=== PATIENT | male | born 2005 | race Hispanic/Latino ===

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

== ENCOUNTER 2023-05-30 09:38 | Emergency (ER) | payer OTHER ==
[~2023-05-30] VITALS: Ht 182.9 cm; Wt 65.5 kg
[2023-05-30 09:43] VITALS: BP 130/83; PULSE 75; RESP 18
[2023-05-30] MEDS ORDERED: LACTATED RINGERS 1000ML IV STA (10:41)
[2023-05-30] MEDS ORDERED: KETOROLAC 30MG VIAL (30MG/ML) IVP ONE (11:00)
[2023-05-30] MEDS ORDERED: ONDANSETRON 4MG INJ IVP ONE (11:00)
[2023-05-30 11:18] LABS: CREATININE 0.8 mg/dL (0.5-1.5); POTASSIUM 3.6 mmol/L (3.5-5.1)
[2023-05-30 11:23] LABS: ALBUMIN 4.4 g/dL (3.5-5.0); BILIRUBIN,TOTAL 1.2 mg/dL (0.2-1.0); TOTAL PROTEIN, SERUM 7.7 g/dL (6.0-8.3)
[2023-05-30 11:24] LABS: BASOPHILS # (AUTO) 0.08 K/uL (0.00-0.20); BASOPHILS % (AUTO) 0.6 % (0.0-5.0); EOSINOPHILS # (AUTO) 0.01 K/uL (0.00-0.70); EOSINOPHILS % (AUTO) 0.1 % (0.0-8.0); IMMATURE GRANULOCYTE ABSOLUTE 0.06 K/uL (0-1); LYMPHOCYTES % (AUTO) 7.7 % (21.0-51.0); MEAN CORPUSCULAR HEMOGLOBIN 31.4 pg (27.0-33.0); MEAN CORPUSCULAR HGB CONC 34.2 g/dL (32.0-36.0); MEAN CORPUSCULAR VOLUME 91.8 fL (80-100); MONOCYTES # (AUTO) 0.6 K/uL (0.1-1.0); MONOCYTES % (AUTO) 4.5 % (3.0-13.0); NEUTROPHILS # (AUTO) 11.6 K/uL (1.8-7.7); NEUTROPHILS % (AUTO) 86.7 % (40.0-77.0); PLATELET COUNT (AUTO) 280 K/uL (130-400); RED CELL DISTRIBUTION WIDTH 12.1 % (11.0-15.5); WHITE BLOOD COUNT (AUTO) 13.4 K/uL (4.8-10.8)
[2023-05-30 12:34] LABS: SARS-CoV-2, RNA, NAAT NEGATIVE SARS CoV-2 (NEGATIVE)
[2023-05-30 12:37] LABS: RAPID GROUP A STREP negative (NEGATIVE)
[2023-05-30 12:44] LABS: INFLUENZA TYPE A Negative For Type A (NEGATIVE); INFLUENZA TYPE B Negative For Type B (NEGATIVE)
[2023-05-30] MEDS ORDERED: IOHEXOL-350 75 ML VIAL IV ONE (13:23)
[2023-05-30] MEDS ORDERED: MORPHINE 2 MG SYG IVP STA (15:08)
[2023-05-30] MEDS ORDERED: LIDOCAINE HCL 2% VISCOUS 15 ML UDCUP PO STA (15:31)
[2023-05-30] MEDS ORDERED: MAG/ALUM/SIMETH 30 ML UDCUP PO STA (15:31)
[2023-05-30] MEDS ORDERED: FAMOTIDINE 20MG VIAL IV ONE (16:00)
[2023-05-30] MEDS ORDERED: FAMO-136 PO (16:16)
[2023-05-30] MEDS ORDERED: ONDA4TAB10 PO (16:16)
== END 2023-05-30 16:28 | disposition home or self-care (01) ==
LOC: EDH 09:38
DX: R10.13 Epigastric pain (principal); R11.2 Nausea with vomiting, unspecified; R05.9 Cough, unspecified; R68.83 Chills (without fever); Z20.822 Contact with and (suspected) exposure to COVID-19
CPT/HCPCS: 99285; 74177; 96374; 96375; 76705; 71045; 87635; 80053; 83690; 85025; 87880; 87804 ×2; 36415; C9803; J3490; J2270; J2405; J1885; Q9967